=== PATIENT | male | born 1990 | race Caucasian/White ===

== ENCOUNTER 2022-01-31 20:03 | Emergency (ER) | payer SELFPAY ==
[~2022-01-31 20:03] MED LIST: IBP800T
[2022-01-31 20:23] LABS: BILIRUBIN,URINE NEGATIVE (NEGATIVE); CLARITY,URINE CLEAR; COLOR,URINE YELLOW; GLUCOSE, URINE (UA) NEGATIVE (NEGATIVE); KETONES,URINE NEGATIVE (NEGATIVE); LEUKOCYTE ESTERASE ,URINE TRACE (NEGATIVE); NITRITE,URINE NEGATIVE (NEGATIVE); PH,URINE 5.5 (5-9); PROTEIN,URINE NEGATIVE (NEGATIVE)
[2022-01-31 20:28] LABS: BACTERIA,URINE NEGATIVE /HPF; RBC,URINE 0-2 /HPF
[2022-01-31] MEDS ORDERED: ONDANSETRON 4 MG (ZOFRAN) ORAL DISSOLVE TAB SL STA (20:48)
[2022-01-31] MEDS ORDERED: ANTACID SUSP 30 ML UDC (MYLANTA) PO ONE (21:00)
[2022-01-31] MEDS ORDERED: LIDOCAINE 2% VISCOUS 15 ML UDC PO ONE (21:00)
--- NOTE | 2022-01-31 21:01 | ED Abdominal Pain ---
General Chief Complaint: Abdominal/GI Problems Stated Complaint: ABDOMINAL PAIN Nursing Triage Note: PT ARRIVAL TO ER VIA PRIVATE VEHICLE FROM HOME WITH COMPLAINTS OF ABDOMINAL PAIN X1 YEAR. PAIN IS JUST ABOVE UMBILICUS AND JUST BELOW STERNUM. PT STATES THAT HE THINKS ITS A HERNIA POSSIBLY. PATIENT STATES THAT IN THE LAST MONTH ABOUT EVERYTHING HE EATS IS CAUSING HIM HEART BURN. PATIENT DENIES CHANGES IN URINE, BOWEL MOVEMENTS AND DENIES VOMITING OR OTHER SYMPTOMS. Source of Information: Patient Exam Limitations: No Limitations History of Present Illness Date Seen by Provider: Jan 31, 2022 Time Seen by Provider: 20:05 Initial Comments This 31-year-old gentleman presents to the emergency room with complaints of epigastric pain intermittently and frequently for the past year. It is exacerbated by eating. He has not had any significant vomiting, nausea, diarrhea, or constipation. He states acetaminophen sometimes helps the pain. He has tried acetaminophen and Tums. He does admit to polysubstance abuse including weekly consumption of 2-3 mixed drinks, marijuana use, and methamphetamine use. He last smoked methamphetamine a couple of days ago. Allergies and Home Medications Allergies Coded Allergies: Shellfish (Unverified Allergy, Mild, 09/03/08) Patient Home Medication List Home Medication List Reviewed: Yes Ibuprofen (Motrin) 800 Mg Tab, (Reported) Entered as Reported by: SHAJI PADRON on 09/03/08 6027 Review of Systems Review of Systems Constitutional: no symptoms reported EENTM: No Symptoms Reported Respiratory: No Symptoms Reported Cardiovascular: No Symptoms Reported Gastrointestinal: See HPI Genitourinary: No Symptoms Reported Musculoskeletal: no symptoms reported Skin: no symptoms reported Psychiatric/Neurological: See HPI Endocrine: No Symptoms Reported Hematologic/Lymphatic: No Symptoms Reported Past [id number] Hx Patient Social History Tobacco Use?: Yes Tobacco type used: Cigarettes Smoking Status: Current Everyday Smoker Use of E-Cig and/or Vaping dev: No Substance use?: Yes Substance type: Methamphetamine, Marijuana Alcohol Use?: Yes Alcohol type: Beer, Hard Liquor Alcohol Frequency: Couple times a week Pt feels they are or have been: No Immunizations Up To Date Influenza Vaccine Up-to-Date: No; Not Current Past Medical History Surgeries: No Respiratory: No Cardiac: No Neurological: No Genitourinary: No Gastrointestinal: No Musculoskeletal: No Endocrine: No HEENT: No Cancer: No Psychosocial: Yes (Polysubstance abuse) Integumentary: No Physical Exam Vital Signs Vital Signs - First Documented 01/31/22 20:08 Temp 37.0 Pulse 89 Resp 18 B/P (MAP) 142/93 (109) Pulse Ox 100 O2 Delivery Room Air Capillary Refill : Height/Weight/BMI Height: '" Weight: lbs. oz. kg; BMI Method: General Appearance: WD/WN, no apparent distress, thin HEENT: normal ENT inspection Respiratory: lungs clear, normal breath sounds, no respiratory distress Cardiovascular: regular rate, rhythm, no edema, no murmur Gastrointestinal: normal bowel sounds, soft; No distended; tenderness (Focal in the epigastrium); No hernia, No mass Extremities: normal inspection, no pedal edema Neurologic/Psychiatric: no motor/sensory deficits, alert, normal mood/affect, oriented x 3 Skin: normal color, warm/dry, tattoos/piercings (heavily) Progress/Results/Core Measures Results/Orders Lab Results Laboratory Tests Test 01/31/22 20:16 Range/Units Urine Color YELLOW Urine Clarity CLEAR Urine pH 5.5 5-9 Urine Specific [employer] >=1.030 1.016-1.022 Urine Protein NEGATIVE NEGATIVE Urine Glucose (UA) NEGATIVE NEGATIVE Urine Ketones NEGATIVE NEGATIVE Urine Nitrite NEGATIVE NEGATIVE Urine Bilirubin NEGATIVE NEGATIVE Urine Urobilinogen 0.2 < = 1.0 MG/DL Urine Leukocyte Esterase TRACE H NEGATIVE Urine RBC (Auto) NEGATIVE NEGATIVE Urine RBC 0-2 /HPF Urine WBC NONE /HPF Urine Squamous Epithelial Cells NONE /HPF Urine Renal Epithelial Cells NONE /HPF Urine Crystals NONE /LPF Urine Bacteria NEGATIVE /HPF Urine Casts NONE /LPF Urine Mucus NEGATIVE /LPF Urine Culture Indicated NO My Orders Orders - ANNA BACA MD Ondansetron Oral Dissolve Tab (Zofran (01/31/22 20:48) Lidocaine 2% Viscous 15 Ml (Xylocaine Vi (01/31/22 21:00) Antacid Suspension (Mylanta Suspension (01/31/22 21:00) Pantoprazole Tablet (Protonix Tablet) (01/31/22 21:45) Medications Given in ED Vital Signs/I&O 01/31/22 01/31/22 20:08 21:48 Temp 37.0 36.9 Pulse 89 76 Resp 18 16 B/P (MAP) 142/93 (109) 130/97 Pulse Ox 100 100 O2 Delivery Room Air Room Air Blood Pressure Mean: 109 Progress Progress Note #1: Time: 21:01 Progress Note Patient was given a trial of Zofran and GI cocktail. Further evaluation will be pending result. He rated his pain prior GI cocktail 5-6 out of 10. Progress Note #2: Progress Note He had significant improvement with GI cocktail. See discharge instructions for further discussion. I did openly travel counselor automobile club the patient regarding need for substance abuse treatment and the impact of substance abuse on his physical health. Patient advised to see surgeon for endoscopy if symptoms do not resolve and to complete hospital financial assistance. Departure Impression Primary Impression: Epigastric pain Additional Impression: Polysubstance abuse Disposition: HOME, SELF-CARE Condition: Improved Departure-Patient Inst. Referrals: SHIKHA GALAVIZ MD (PCP/Family) Primary Care Physician Patient Instructions: ALCOHOL AND SUBSTANCE ABUSE, Acid Reflux and Gastroesophageal Reflux Disease in Adults, Gastritis ED Add. Discharge Instructions: Take omeprazole purchased [id number] 20 mg twice daily for at least 2 weeks. For flares of pain you may additionally take Tums per package instructions. You may treat pain with Tylenol (acetaminophen) up to 1000 mg every 6 hours as needed but avoid use of NSAID medications such as ibuprofen, naproxen, aspirin, and brand names of these medications. Avoid the following: Eating large meals, eating close to bedtime, caffeine, carbonation, chocolate, citrus fruits and juices, tomato products, mints, spicy foods, fatty greasy foods, tobacco, alcohol, illicit substances such as marijuana or methamphetamine, NSAID medications such as ibuprofen or naproxen, or anything else you know irritates your stomach. Follow-up with a primary care provider. If you do not have insurance coverage, I would recommend [place] [facility] [facility] [place] [phone]. They additionally have substance abuse and recovery resources. You may also contact the [facility] office at for substance abuse and recovery resources. Complete financial assistance application with the hospital to help with further care if needed. Return to care if you are having worsening symptoms despite following these instructions. All discharge instructions reviewed with patient and/or family. Voiced understanding. ANNA BACA MD Jan 31, 2022 21:01
[2022-01-31] MEDS ORDERED: PANTOPRAZOLE 40 MG (PROTONIX) TAB PO ONE (21:45)
[2022-01-31 21:48] VITALS: BP 130/97
== END 2022-01-31 21:48 | disposition home or self-care (01) ==
LOC: EDUNIT# 20:03 → ER 20:05
DX: R10.13 Epigastric pain (principal); F19.10 Other psychoactive substance abuse, uncomplicated; F17.210 Nicotine dependence, cigarettes, uncomplicated; Z28.310 Unvaccinated for COVID-19
CPT/HCPCS: 81000; 99283